=== PATIENT | female | born 1985 | race Caucasian/White ===

== ENCOUNTER → 2017-03-03 | Outpatient (CLI) | payer OTHER ==
[~2017-03-03] MED LIST: BENZ100A PO; Bactrim Ds Tab1 EACH PO; CETI5 PO; CLON.5; Cyclobenzaprine5 MG PO; DOXY100 PO; ESCI20 PO; FLUO20 PO; Flonase 0.05% N16 GM; Flovent Disku250 MCG PO; GUAI120S1 PO; HYDACE5325 PO; HYDPAM25 PO; IBUP800 PO; LORA1 PO; METF500; METR500 PO; Nuvaring Vagin1 EACH; Percocet 5-3251 EACH PO; QUET200 PO; Sudogest30 MG PO; TRAM50 PO; Ventolin/Prove6.7 GM; [UNRECOGNIZED DRUG - REMARK]
[2017-03-03 13:24] LABS: Specimen Source CERVICAL
[2017-03-04 03:21] LABS: Source CERVICAL
[2017-03-05 14:18] LABS: HPV Genotype 16 Not Detected (NOTDET); HPV Genotype 18 Not Detected (NOTDET)
[2017-03-14 16:21] LABS: HPV High Risk Other Not Detected (NOTDET)
== END ==
LOC: LAB SHORT 13:22
PROVIDERS: Registered Nurse Community Health
DX: Z11.3 Encounter for screening for infections with a predominantly sexual mode of transmission (principal); Z12.4 Encounter for screening for malignant neoplasm of cervix; Z34.81 Encounter for supervision of other normal pregnancy, first trimester
CPT/HCPCS: 87491; 87591; 87624; G0123

== ENCOUNTER → 2017-05-10 | Outpatient (CLI) | payer OTHER ==
[~2017-05-10] MED LIST changes: -CETI5 PO; -Cyclobenzaprine5 MG PO; -Flovent Disku250 MCG PO; -HYDPAM25 PO; -Percocet 5-3251 EACH PO; -Ventolin/Prove6.7 GM
== END ==
LOC: LAB SHORT 15:01 → LAB 15:01
DX: B00.1 Herpesviral vesicular dermatitis (principal)
CPT/HCPCS: 87252; 87254

== ENCOUNTER → 2017-08-15 | Outpatient (CLI) | payer OTHER | LOC: LAB 10:51 → LAB SHORT 10:51 | DX: Z34.83 Encounter for supervision of other normal pregnancy, third trimester (principal) | CPT/HCPCS: 87081; 87653 ==

== ENCOUNTER 2017-09-02 07:11 | Inpatient (IN) | payer OTHER ==
[2017-09-01 11:33] LABS: BASOPHILS ABSOLUTE AUTO 0.05 K/mm3 (0.00-0.23); BASOPHILS PERCENT AUTO 1 % (0-2); EOSINOPHILS ABSOLUTE AUTO 0.51 K/mm3 (0.00-0.68); EOSINOPHILS PERCENT AUTO 5 % (0-6); Hematocrit 30.5 % (33.0-51.0); Hemoglobin 9.4 g/dL (11.5-16.0); IMMATURE GRAN ABSOLUTE AUTO 0.07 K/mm3 (0.00-0.10); IMMATURE GRAN PERCENT AUTO 1 % (0-1); LYMPHOCYTES ABSOLUTE AUTO 2.11 K/mm3 (0.84-5.20); LYMPHOCYTES PERCENT AUTO 19 % (21-46); MONOCYTES ABSOLUTE AUTO 0.53 K/mm3 (0.16-1.47); MONOCYTES PERCENT AUTO 5 % (4-13); Mean Corpuscular HGB 23.9 pg (26.0-34.0); Mean Corpuscular HGB Conc 30.8 g/dL (31.5-36.5); Mean Corpuscular Volume 78 fL (80-100); Mean Platelet Volume 11.3 fL (9.1-12.4); NEUTROPHILS ABSOLUTE AUTO 7.82 K/mm3 (1.96-9.15); NEUTROPHILS PERCENT AUTO 71 % (41-73); Platelet Count 369 K/mm3 (150-400); RDW Coefficient Variation 15.3 % (11.7-14.2); RDW Standard Deviation 42.6 fL (35.1-46.3); Red Blood Cell Count 3.93 M/mm3 (3.80-5.20); White Blood Cell Count 11.09 K/mm3 (4.00-11.30)
[~2017-09-02] VITALS: Ht 167.6 cm; Wt 162.7 kg
[~2017-09-02 07:11] MED LIST changes: +CETI5 PO; +Cyclobenzaprine5 MG PO; +Flovent Disku250 MCG PO; +HYDPAM25 PO; +Ventolin/Prove6.7 GM
[2017-09-02 10:17] LABS: PCO2 Cord - Venous 40.6 mmHg (40-50); PO2 Cord - Venous 24.8 mmHg (28-32); pH Umbilical Cord - Venous 7.37 (7.26-7.35)
[2017-09-03 05:03] LABS: Hematocrit 28.8 % (33.0-51.0); Hemoglobin 9.1 g/dL (11.5-16.0); Mean Corpuscular HGB 24.3 pg (26.0-34.0); Mean Corpuscular HGB Conc 31.6 g/dL (31.5-36.5); Mean Corpuscular Volume 77 fL (80-100); Mean Platelet Volume 11.2 fL (9.1-12.4); Platelet Count 321 K/mm3 (150-400); RDW Coefficient Variation 15.3 % (11.7-14.2); RDW Standard Deviation 42.5 fL (35.1-46.3); Red Blood Cell Count 3.74 M/mm3 (3.80-5.20); White Blood Cell Count 12.28 K/mm3 (4.00-11.30)
[2017-09-04] MEDS ORDERED: IBUP800 PO (11:10)
[2017-09-04] MEDS ORDERED: Percocet 5-3251 EACH PO (11:10)
== END 2017-09-04 13:40 | disposition home or self-care (01) | DRG 765 ==
LOC: BC 07:11
PROVIDERS: Obstetrics & Gynecology
PROC: 10D00Z1 Extraction of Products of Conception, Low, Open Approach (ICD-10-PCS; principal; 2017-09-02 09:00)
PROC: 0UB70ZZ Excision of Bilateral Fallopian Tubes, Open Approach (ICD-10-PCS; 2017-09-02 09:00)
PROC: 3E0234Z Introduction of Serum, Toxoid and Vaccine into Muscle, Percutaneous Approach (ICD-10-PCS; 2017-09-04)
DX: O34.219 Maternal care for unspecified type scar from previous cesarean delivery (principal); O99.354 Diseases of the nervous system complicating childbirth; Z68.43 Body mass index [BMI] 50.0-59.9, adult; Z37.0 Single live birth; Z30.2 Encounter for sterilization; Z3A.39 39 weeks gestation of pregnancy; Z23 Encounter for immunization; O99.214 Obesity complicating childbirth; E66.01 Morbid (severe) obesity due to excess calories; G47.33 Obstructive sleep apnea (adult) (pediatric); O69.81X0 Labor and delivery complicated by cord around neck, without compression, not applicable or unspecified; J45.909 Unspecified asthma, uncomplicated; O99.52 Diseases of the respiratory system complicating childbirth; O99.344 Other mental disorders complicating childbirth; F41.9 Anxiety disorder, unspecified; O99.62 Diseases of the digestive system complicating childbirth; K21.9 Gastro-esophageal reflux disease without esophagitis
CPT/HCPCS: 36415; 82803; 85025; 85027; 86850; 86900; 86901; 90670; 94640; 94760; J0690; J1885; J2405; J2590; J2765; J3010; J7120; Q0177

== ENCOUNTER 2018-05-14 10:26 | Emergency (ER) | payer OTHER ==
[~2018-05-14] VITALS: Ht 167.6 cm; Wt 158.8 kg
[~2018-05-14 10:26] MED LIST changes: +Percocet 5-3251 EACH PO
[2018-05-14] MEDS ORDERED: CLON.5 PO (10:53)
[2018-05-14] MEDS ORDERED: LABE100 PO (10:54)
[2018-05-14] MEDS ORDERED: Adipex-P37.5 MG PO (10:54)
[2018-05-14] MEDS ORDERED: Zantac150 MG PO (10:54)
[2018-05-14] MEDS ORDERED: Norco 5-325 Ta1 EACH PO (11:47)
== END 2018-05-14 12:10 | disposition home or self-care (01) ==
LOC: ER 10:26
DX: S93.401A Sprain of unspecified ligament of right ankle, initial encounter (principal); X50.9XXA Other and unspecified overexertion or strenuous movements or postures, initial encounter; Z88.1 Allergy status to other antibiotic agents; Z88.8 Allergy status to other drugs, medicaments and biological substances; Z91.040 Latex allergy status; Z79.899 Other long term (current) drug therapy; F32.9 Major depressive disorder, single episode, unspecified; F41.9 Anxiety disorder, unspecified; F43.10 Post-traumatic stress disorder, unspecified; I10 Essential (primary) hypertension; Z87.891 Personal history of nicotine dependence
CPT/HCPCS: 29515; 73560-RT; 73610; 99283-25

== ENCOUNTER 2019-06-29 15:28 | Emergency (ER) | payer OTHER ==
[~2019-06-29] VITALS: Ht 167.6 cm; Wt 158.8 kg
[~2019-06-29 15:28] MED LIST changes: +Adipex-P37.5 MG PO; +CLON.5 PO; +LABE100 PO; +Norco 5-325 Ta1 EACH PO; +Zantac150 MG PO
[2019-06-29] MEDS ORDERED: Norco 5-325 Ta1 EACH PO (17:56)
== END 2019-06-29 18:15 | disposition home or self-care (01) ==
LOC: ER 15:28
DX: S89.92XA Unspecified injury of left lower leg, initial encounter (principal); F41.9 Anxiety disorder, unspecified; F32.9 Major depressive disorder, single episode, unspecified; F43.10 Post-traumatic stress disorder, unspecified; G62.9 Polyneuropathy, unspecified; Z87.891 Personal history of nicotine dependence; Z91.040 Latex allergy status; Z88.1 Allergy status to other antibiotic agents; Z88.8 Allergy status to other drugs, medicaments and biological substances; Z79.899 Other long term (current) drug therapy; W19.XXXA Unspecified fall, initial encounter
CPT/HCPCS: 73564; 99283-25